=== PATIENT | male | born 1945 | race Caucasian/White ===

== ENCOUNTER 2017-02-17 12:25 | Emergency (ER) | payer OTHER ==
[~2017-02-17] VITALS: Ht 190.5 cm; Wt 80.3 kg
[~2017-02-17 12:25] MED LIST: AMT50 PO; B-CO1CAP17 PO; INSDGI INJ; LSN/10125 PO; METF-384 PO; MULT-506 PO; OMEG10007 PO; SIMV20TA2 PO
[2017-02-17 12:46] VITALS: TEMP 36.5; Ht 190.5 cm; Wt 80.3 kg
[2017-02-17 13:38] LABS: BASO % 0.9 %; BASO ABS # 0.07 K/uL (0-0.2); COMPLETE YES; EOS % 3.4 %; HEMATOCRIT 36.4 % (42-52); IG% 0.3 %; LYMPH % 24.6 %; LYMPH ABS # 1.87 K/uL (1.2-3.4); MEAN CELL VOLUME 86.9 fL (80-100); MEAN CORPUSCULAR HEMOGLOBIN 31.3 pg (25-34); MEAN PLATELET VOLUME 8.8 fL (7.4-10.4); MONO % 9.6 %; NEUT % 61.2 %; PLATELET COUNT 312 K/uL (130-400); RED BLOOD COUNT 4.19 M/uL (4.7-6.1); WHITE BLOOD COUNT 7.61 K/uL (4.8-10.8)
[2017-02-17 13:55] LABS: ACETAMINOPHEN 4 ug/ml (10-30)
[2017-02-17 13:56] LABS: BUN/CREATININE RATIO 18.8 (10-20); CALCIUM 9.6 mg/dl (8.5-10.1); CREATININE 1.4 mg/dl (0.60-1.40); POTASSIUM 3.5 mmol/L (3.5-5.1)
[2017-02-17 14:07] LABS: THYROID STIMULATING HORMONE 0.99 uIu/ml (0.300-4.500)
[2017-02-17 15:16] LABS: BENZODIAZEPINE, URINE NEG (NEG); COCAINE,URINE NEG (NEG); PHENCYCLIDINE, URINE NEG (NEG)
[2017-02-17 15:53] LABS: URINE APPEARANCE CLEAR (CLEAR); URINE BILIRUBIN NEG (NEG); URINE COLOR DK YELLOW; URINE NITRITE NEG (NEG); URINE SPECIFIC GRAVITY 1.025 (1.000-1.030); UROBILINOGEN NEG (NEG); ZZUR CULT IF INDIC CLEAN CATCH NO
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
[2017-02-17 16:01] LABS: MANUAL MICROSCOPIC REQUIRED? NO; REVIEW REQ? NO
[2017-02-17] MEDS ORDERED: LANTUS PER UNIT CHARGE SC STA (18:18)
[2017-02-17] MEDS ORDERED: LANTUS PER UNIT CHARGE SQ ONE (18:45)
[2017-02-17] MEDS ORDERED: METFORMIN HCL 500 MG TAB PO SCH (21:00)
[2017-02-17] MEDS ORDERED: AMITRIPTYLINE HCL 50 MG TAB PO ONE (21:00)
[2017-02-17] MEDS ORDERED: SIMVASTATIN 20 MG TAB PO SCH (21:00)
[2017-02-17] MEDS ORDERED: LISINOPRIL/HCTZ 20/25MG TAB PO SCH (21:00)
[2017-02-18 03:27] VITALS: BP 102/62; PULSE 67; O2SAT 97
== END 2017-02-18 03:27 ==
LOC: EDBD 12:25 → C.EDA 12:27
DX: R45.851 Suicidal ideations (principal); Z79.4 Long term (current) use of insulin; Z79.84 Long term (current) use of oral hypoglycemic drugs; Z79.899 Other long term (current) drug therapy